=== PATIENT | female | born 1975 | race African-American/Black ===

== ENCOUNTER 2016-05-18 13:54 | Emergency (ER) | payer OTHER ==
[~2016-05-18] VITALS: Ht 167.6 cm; Wt 90.0 kg
[~2016-05-18 13:54] MED LIST: DIPH25 PO; DIVA125T PO; FLUO-191 PO
[2016-05-18] MEDS ORDERED: HALO1 PO (14:12)
[2016-05-18 14:32] LABS: APPEARANCE,URINE CLOUDY (CLEAR); GLUCOSE, URINE (UA) NEGATIVE (NEGATIVE); KETONES,URINE NEGATIVE (NEGATIVE); LEUKOCYTE ESTERASE ,URINE MODERATE (NEGATIVE); OCCULT BLOOD,URINE NEGATIVE (NEGATIVE); PROTEIN,URINE NEGATIVE (NEGATIVE)
[2016-05-18 14:33] LABS: ADD UA MICROSCOPIC YES
[2016-05-18 14:40] LABS: RBC,URINE 0-2 /HPF (0-2); SQUAMOUS EPITHELIAL CELL,UR Few /LPF (None Seen); URINALYSIS COMMENT Few Trichomonas seen
[2016-05-18] MEDS ORDERED: MetroNIDAZOLE 250 MG TABLET PO ONE (15:45)
[2016-05-18] MEDS ORDERED: LIDOCAINE HCL/PF 1% 2 ML VIAL IM ONE (16:15)
[2016-05-18] MEDS ORDERED: AZITHROMYCIN 250 MG TABLET PO ONE (16:15)
[2016-05-18] MEDS ORDERED: CefTRIAXone SODIUM 1 GM/VIAL IM ONE (16:15)
[2016-05-18 16:34] VITALS: BP 112/70
[2016-05-20 22:10] LABS: GC DNA N.A. AMPLIFY Negative (Negative)
== END 2016-05-18 16:36 | disposition home or self-care (01) ==
LOC: EMS 13:56
DX: A59.01 Trichomonal vulvovaginitis (principal); N39.0 Urinary tract infection, site not specified; F17.210 Nicotine dependence, cigarettes, uncomplicated; F15.90 Other stimulant use, unspecified, uncomplicated
CPT/HCPCS: 81001; 84703; 87086; 87210; 87491; 87591; 96372; 99284; 99406; J0696; J3490

== ENCOUNTER 2016-05-21 13:16 | Emergency (ER) | payer OTHER ==
[~2016-05-21] VITALS: Ht 167.6 cm; Wt 84.0 kg
[~2016-05-21 13:16] MED LIST changes: +HALO1 PO
[2016-05-21 14:39] VITALS: BP 119/79
[2016-05-21 15:16] LABS: BASOPHILS % (AUTO) 0.2 % (0.0-2.0); EOSINOPHILS % (AUTO) 2.3 % (1.0-6.0); HEMATOCRIT 38.7 % (36-46); HEMOGLOBIN 12.8 g/dL (12.0-16.0); LYMPHOCYTES # (AUTO) 1.8 K/uL (1.0-4.8); LYMPHOCYTES % (AUTO) 27.7 % (22.0-44.0); MEAN CORPUSCULAR HEMOGLOBIN 31.7 pg (26.0-34.0); MEAN CORPUSCULAR HGB CONC 33.1 G/dL (31.0-37.0); MEAN CORPUSCULAR VOLUME 96 fL (80-100); MONOCYTES # (AUTO) 0.4 K/uL (0.1-1.0); MONOCYTES % (AUTO) 6.3 % (2.0-9.0); NEUTROPHILS % (AUTO) 63.5 % (40.0-70.0); PLATELET COUNT (AUTO) 364 K/uL (150-450); RED BLOOD CELL COUNT(AUTO) 4.04 MIL/uL (4.00-5.20); RED CELL DISTRIBUTION WIDTH 14.2 % (11.5-14.5); WHITE BLOOD COUNT (AUTO) 6.4 K/uL (4.5-11.0)
[2016-05-21 15:18] LABS: ANION GAP 7 mmol/L (8-16); CALCIUM, TOTAL 8.8 mg/dL (8.8-10.5); CARBON DIOXIDE 30 mmol/L (22-29); CHLORIDE 105 mmol/L (98-107); CREATININE 0.73 mg/dL (0.60-1.30); GLOMERULAR FILTR. RATE CALC > 60 mL/min (>60); POTASSIUM 4.2 mmol/L (3.5-5.1); SODIUM SERUM 142 mmol/L (136-145); UREA NITROGEN, BLOOD 10 mg/dL (7-18)
[2016-05-21 15:25] LABS: ALANINE AMINOTRANSFERASE 15 U/L (12-78); ALBUMIN 3.7 g/dL (3.4-5.0); ASPARTATE AMINOTRANSFERASE 8 U/L (15-37); BILIRUBIN,TOTAL 0.2 mg/dL (0.1-1.0); TOTAL PROTEIN, SERUM 7.8 g/dL (6.4-8.2)
[2016-05-21 15:36] LABS: VALPROIC ACID < 3 mcg/mL (50-100)
== END 2016-05-21 16:16 | disposition home or self-care (01) ==
LOC: EMS 13:17
DX: F25.9 Schizoaffective disorder, unspecified (principal); F31.9 Bipolar disorder, unspecified; F17.210 Nicotine dependence, cigarettes, uncomplicated; F19.90 Other psychoactive substance use, unspecified, uncomplicated
CPT/HCPCS: 36415; 80053; 80164; 80307; 84703; 85025; 99284; G0480

== ENCOUNTER 2016-06-18 11:08 | Emergency (ER) | payer OTHER ==
[~2016-06-18] VITALS: Ht 170.2 cm; Wt 100.0 kg
[2016-06-18] MEDS ORDERED: METHOCARBAMOL 500 MG TABLET PO ONE (12:30)
[2016-06-18] MEDS ORDERED: KETOROLAC TROMETHAMINE 60 MG/2 ML VIAL IM ONE (12:30)
[2016-06-18 12:59] VITALS: BP 111/75
== END 2016-06-18 13:55 | disposition home or self-care (01) ==
LOC: EMS 11:09
DX: S46.911A Strain of unspecified muscle, fascia and tendon at shoulder and upper arm level, right arm, initial encounter (principal); S39.012A Strain of muscle, fascia and tendon of lower back, initial encounter; M70.61 Trochanteric bursitis, right hip; M54.42 Lumbago with sciatica, left side; F15.90 Other stimulant use, unspecified, uncomplicated; F17.210 Nicotine dependence, cigarettes, uncomplicated; X58.XXXA Exposure to other specified factors, initial encounter; Y93.89 Activity, other specified; Y92.89 Other specified places as the place of occurrence of the external cause; Y99.8 Other external cause status
CPT/HCPCS: 96372; 99283; J1885

== ENCOUNTER 2016-09-17 14:47 | Emergency (ER) | payer OTHER ==
[~2016-09-17] VITALS: Ht 167.6 cm; Wt 99.0 kg
[2016-09-17] MEDS ORDERED: SODIUM CHLORIDE 0.9% 1,000 ML IV ONE (15:09)
[2016-09-17] MEDS ORDERED: ONDANSETRON HCL 4 MG/2 ML VIAL IVP ONE (15:15)
[2016-09-17] MEDS ORDERED: KETOROLAC TROMETHAMINE 30 MG/ML VIAL IVP ONE (15:15)
[2016-09-17 15:58] LABS: BASOPHILS % (AUTO) 0.2 % (0.0-2.0); EOSINOPHILS % (AUTO) 2.4 % (1.0-6.0); HEMATOCRIT 38.7 % (36-46); HEMOGLOBIN 13.4 g/dL (12.0-16.0); LYMPHOCYTES # (AUTO) 2.4 K/uL (1.0-4.8); LYMPHOCYTES % (AUTO) 26.5 % (22.0-44.0); MEAN CORPUSCULAR HEMOGLOBIN 33.2 pg (26.0-34.0); MEAN CORPUSCULAR HGB CONC 34.6 G/dL (31.0-37.0); MEAN CORPUSCULAR VOLUME 96 fL (80-100); MONOCYTES # (AUTO) 0.4 K/uL (0.1-1.0); MONOCYTES % (AUTO) 4.5 % (2.0-9.0); NEUTROPHILS % (AUTO) 66.4 % (40.0-70.0); PLATELET COUNT (AUTO) 251 K/uL (150-450); RED BLOOD CELL COUNT(AUTO) 4.04 MIL/uL (4.00-5.20); RED CELL DISTRIBUTION WIDTH 13.9 % (11.5-14.5)
[2016-09-17 16:08] LABS: ANION GAP 6 mmol/L (8-16); CALCIUM, TOTAL 9.2 mg/dL (8.8-10.5); CARBON DIOXIDE 30 mmol/L (22-29); CHLORIDE 106 mmol/L (98-107); CREATININE 1.01 mg/dL (0.60-1.30); GLOMERULAR FILTR. RATE CALC > 60 mL/min (>60); POTASSIUM 4.3 mmol/L (3.5-5.1); SODIUM SERUM 142 mmol/L (136-145); UREA NITROGEN, BLOOD 12 mg/dL (7-18)
[2016-09-17 16:14] LABS: ALANINE AMINOTRANSFERASE 17 U/L (12-78); ALBUMIN 3.3 g/dL (3.4-5.0); ASPARTATE AMINOTRANSFERASE 9 U/L (15-37); BILIRUBIN,TOTAL 0.1 mg/dL (0.1-1.0); TOTAL PROTEIN, SERUM 7.2 g/dL (6.4-8.2)
[2016-09-17 18:03] LABS: ADD UA MICROSCOPIC NO; APPEARANCE,URINE CLOUDY (CLEAR); GLUCOSE, URINE (UA) NEGATIVE (NEGATIVE); KETONES,URINE NEGATIVE (NEGATIVE); LEUKOCYTE ESTERASE ,URINE NEGATIVE (NEGATIVE); OCCULT BLOOD,URINE NEGATIVE (NEGATIVE); PROTEIN,URINE NEGATIVE (NEGATIVE)
[2016-09-17 19:33] VITALS: BP 107/60
== END 2016-09-17 19:34 | disposition home or self-care (01) ==
LOC: EMS 14:49
DX: R10.30 Lower abdominal pain, unspecified (principal); R19.7 Diarrhea, unspecified; F20.9 Schizophrenia, unspecified; F31.9 Bipolar disorder, unspecified; F17.210 Nicotine dependence, cigarettes, uncomplicated; Z79.899 Other long term (current) drug therapy
CPT/HCPCS: 36415; 80053; 80307; 81003; 83690; 85025; 96361; 96374; 96375; 99284; J1885; J2405; J7030

== ENCOUNTER 2016-11-14 11:31 | Emergency (ER) | payer OTHER ==
[~2016-11-14] VITALS: Ht 167.6 cm; Wt 97.7 kg
[2016-11-14] MEDS ORDERED: ARIP2 PO (11:53)
[2016-11-14] MEDS ORDERED: ACETAMINOPHEN 325 MG TABLET PO ONE (12:15)
[2016-11-14] MEDS ORDERED: ONDANSETRON HCL 4 MG TABLET PO ONE (12:15)
[2016-11-14] MEDS ORDERED: LOPERAMIDE HCL 2 MG CAPSULE PO ONE (12:15)
[2016-11-14 15:08] VITALS: BP 131/68
== END 2016-11-14 15:12 | disposition home or self-care (01) ==
LOC: EMS 11:38
DX: A08.4 Viral intestinal infection, unspecified (principal); F17.210 Nicotine dependence, cigarettes, uncomplicated
CPT/HCPCS: 99284; Q0162